=== PATIENT | female | born 1965 | race Hispanic/Latino ===

== ENCOUNTER 2022-04-03 21:08 | Inpatient (IN) | payer BC, OTHER ==
[~2022-04-03] VITALS: Ht 162.6 cm; Wt 79.8 kg
[2022-04-03] MEDS ORDERED: ACETAMINOPHEN 500 MG TABLET ONE (21:36)
[2022-04-03] MEDS ORDERED: ONDANSETRON 4MG INJ IVP ONE (22:00)
[2022-04-03] MEDS ORDERED: 0.9%NACL 1000ML 1,000 ML IV SCH ×2 (22:00→23:30)
[2022-04-03] MEDS ORDERED: ACETAMINOPHEN 500 MG TABLET PO ONE (22:00)
[2022-04-03 22:04] LABS: BASOPHILS % (AUTO) 0.4 % (0.0-5.0); HEMATOCRIT 46.1 % (36-48); MEAN CORPUSCULAR HEMOGLOBIN 29.2 pg (27.0-33.0); MEAN CORPUSCULAR HGB CONC 33.6 g/dL (32.0-36.0); MEAN CORPUSCULAR VOLUME 86.8 fL (79-99); MONOCYTES % (AUTO) 4.5 % (3.0-13.0); NEUTROPHILS % (AUTO) 82.3 % (40.0-77.0); PLATELET COUNT (AUTO) 143 K/uL (130-400); RED BLOOD CELL COUNT(AUTO) 5.31 MIL/uL (4.00-5.50); RED CELL DISTRIBUTION WIDTH 12.3 % (11.0-15.5); WHITE BLOOD COUNT (AUTO) 10.8 K/uL (4.8-10.8)
[2022-04-03 22:08] LABS: APPEARANCE,URINE CLOUDY (CLEAR); BILIRUBIN,URINE 0.5 mg/dL (NEGATIVE); COLOR,URINE YELLOW (YELLOW); GLUCOSE, URINE (UA) 500 mg/dL (NEGATIVE); KETONES,URINE 5 mg/dL (NEGATIVE); LEUKOCYTE ESTERASE ,URINE NEGATIVE Leu/uL (NEGATIVE); NITRATE,URINE NEGATIVE (NEGATIVE); PH,URINE 5.5 (5.0-8.0); PROTEIN,URINE 30 mg/dL (NEGATIVE)
[2022-04-03 22:13] LABS: BACTERIA,URINE FEW /HPF (None Seen); MUCUS,URINE RARE LPF (None Seen); OTHER CASTS, URINE 1 /LPF (None Seen); SQUAMOUS EPITHELIAL CELL,UR MOD /HPF (0-2); WBC,URINE 26-50 /HPF (0-1); YEAST,URINE BUDDING FEW /HPF (None Seen)
[2022-04-03 22:18] LABS: ALBUMIN 3.2 g/dL (3.5-5.0); CREATININE 1.6 mg/dL (0.5-1.5); POTASSIUM 3.1 mmol/L (3.5-5.1); TOTAL PROTEIN, SERUM 8.2 g/dL (6.0-8.3)
[2022-04-03 22:22] LABS: ABG BASE EXCESS -1.7 mmol/L (-2.0-3.0); ABG HCO3 21.4 mmol/L (21.0-28.0); ABG OXYGEN SATURATION 93.9 % (95.0-99.0); ABG PCO2 32 mmHg (32-45)
[2022-04-03] MEDS ORDERED: CEFTRIAXONE 1G VIAL ONE (23:22)
[2022-04-03] MEDS ORDERED: INSULIN HUMULIN R 100 UNIT/ML 3ML ONE (23:22)
[2022-04-03] MEDS ORDERED: POTASSIUM BICARB/CIT AC 25 MEQ TABLET.EFF PO ONE (23:30)
[2022-04-03] MEDS ORDERED: CEFTRIAXONE 1G VIAL IVP ONE (23:30)
[2022-04-03] MEDS ORDERED: INSULIN HUMULIN R 100 UNIT/ML 3ML IV ONE (23:30)
[2022-04-04] MEDS ORDERED: GUAIFENESIN-DM 200/20 MG 10 ML PO PRN (05:00)
[2022-04-04] MEDS ORDERED: MAG/ALUM/SIMETH 30 ML UDCUP PO PRN (05:00)
[2022-04-04] MEDS ORDERED: POTASSIUM CHLORIDE 20MEQ/100ML 100 ML IV PRN (05:00)
[2022-04-04] MEDS ORDERED: ONDANSETRON 4MG INJ IV PRN (05:00)
[2022-04-04] MEDS ORDERED: GLUCAGON 1MG KIT 1 MG ML IM PRN (05:00)
[2022-04-04] MEDS ORDERED: DIPHENHYDRAMINE HCL 25 MG CAPSULE PO PRN (05:00)
[2022-04-04] MEDS ORDERED: LIDOCAINE HCL-MPF 1% 2ML VIAL IV PRN (05:00)
[2022-04-04] MEDS ORDERED: NITROGLYCERIN 0.4 MG SL TAB SL PRN (05:00)
[2022-04-04] MEDS ORDERED: MORPHINE 2 MG SYG IV PRN (05:00)
[2022-04-04] MEDS ORDERED: DEXTROSE 50%-WATER 50 ML DISP.SYRIN IV PRN (05:00)
[2022-04-04] MEDS ORDERED: LACTULOSE 20 GM/30 ML UDCUP PO PRN (05:00)
[2022-04-04] MEDS ORDERED: CEFTRIAXONE 1G VIAL IV SCH (05:00)
[2022-04-04] MEDS ORDERED: HYDRALAZINE 20MG/ML VIAL IV PRN (05:00)
[2022-04-04] MEDS: 0.9%NACL 1000ML 1,000 ML IV SCH ×2 (05:27→14:33)
[2022-04-04] MEDS: HEPARIN 5,000 UNIT VIAL SQ SCH ×2 (08:00→20:40)
[2022-04-04] MEDS: FAMOTIDINE 20MG VIAL IV SCH ×2 (08:00→20:37)
[2022-04-04] MEDS: INSULIN HUMULIN R 100 UNIT/ML 3ML SQ SCH ×4 (08:03→20:41)
[2022-04-04 10:08] LABS: HEMOGLOBIN A1C 12.4 % (4.0-6.0)
[2022-04-04] MEDS: ACETAMINOPHEN 325 MG TAB PO PRN (11:01)
[2022-04-04 13:15] VITALS: BP 115/66
[2022-04-04 14:40] LABS: AMPHET/METH SCREEN,URINE NEGATIVE (NEGATIVE); BARBITURATE SCREEN, URINE NEGATIVE (NEGATIVE); BENZODIAZEPINES SCREEN,URINE NEGATIVE (NEGATIVE); CANNABINOID SCREEN,URINE NEGATIVE (NEGATIVE); COCAINE SCREEN,URINE NEGATIVE (NEGATIVE); CREATININE,URINE RANDOM 173 mg/dL (30-135); OPIATE SCREEN,URINE NEGATIVE (NEGATIVE); PHENCYCLIDINE SCREEN,URINE NEGATIVE (NEGATIVE); PROTEIN,URINE RANDOM 74.9 mg/dL (0-11.9)
[2022-04-04 15:33] LABS: ALBUMIN 2.3 g/dL (3.5-5.0); CREATININE 0.8 mg/dL (0.5-1.5); POTASSIUM 3.2 mmol/L (3.5-5.1); TOTAL PROTEIN, SERUM 5.9 g/dL (6.0-8.3)
[2022-04-04 16:00] VITALS: BP 103/60
[2022-04-04] MEDS ORDERED: MAGNESIUM 2GM PREMIX 50ML 50 ML IV PRN (16:00)
[2022-04-04] MEDS: KCL 20 MEQ ERTAB PO PRN (18:18)
[2022-04-04] MEDS: POTASSIUM CHLORIDE 10% ELIXIR 20 MEQ/15 ML UDCUP PO PRN ×2 (19:08→19:09)
[2022-04-04 20:29] VITALS: BP 105/63
[2022-04-04] MEDS: INSULIN GLARGINE 100 UNITS/ML 10 ML VIAL SQ SCH (20:42)
[2022-04-05] MEDS: 0.9%NACL 1000ML 1,000 ML IV SCH ×4 (00:46→23:35)
[2022-04-05 04:15] VITALS: BP 110/58
[2022-04-05 05:27] LABS: BASOPHILS % (AUTO) 0.4 % (0.0-5.0); HEMATOCRIT 33.5 % (36-48); LYMPHOCYTES % (AUTO) 23.4 % (21.0-51.0); MEAN CORPUSCULAR HEMOGLOBIN 29.4 pg (27.0-33.0); MEAN CORPUSCULAR HGB CONC 33.1 g/dL (32.0-36.0); MEAN CORPUSCULAR VOLUME 88.9 fL (79-99); MONOCYTES % (AUTO) 7.5 % (3.0-13.0); NEUTROPHILS % (AUTO) 66.5 % (40.0-77.0); PLATELET COUNT (AUTO) 147 K/uL (130-400); RED BLOOD CELL COUNT(AUTO) 3.77 MIL/uL (4.00-5.50); RED CELL DISTRIBUTION WIDTH 12.6 % (11.0-15.5); WHITE BLOOD COUNT (AUTO) 7.7 K/uL (4.8-10.8)
[2022-04-05 05:34] LABS: CREATININE 0.7 mg/dL (0.5-1.5); POTASSIUM 3.3 mmol/L (3.5-5.1)
[2022-04-05] MEDS: KCL 20 MEQ ERTAB PO PRN ×3 (05:40→19:43)
[2022-04-05] MEDS: ACETAMINOPHEN 325 MG TAB PO PRN ×2 (05:59→11:39)
[2022-04-05] MEDS: INSULIN HUMULIN R 100 UNIT/ML 3ML SQ SCH ×4 (06:02→19:40)
[2022-04-05 08:34] VITALS: BP 130/64
[2022-04-05] MEDS: FAMOTIDINE 20MG VIAL IV SCH ×2 (11:13→19:43)
[2022-04-05 11:19] VITALS: BP 115/58
[2022-04-05] MEDS: HEPARIN 5,000 UNIT VIAL SQ SCH ×2 (11:20→19:43)
[2022-04-05] MEDS: CEFTRIAXONE 1G VIAL IVP SCH (11:30)
[2022-04-05] MEDS ORDERED: CEFTRIAXONE 1G VIAL ONE (11:44)
[2022-04-05] MEDS ORDERED: HYDROMORPHONE 1 MG INJ IVP PRN (12:00)
[2022-04-05] MEDS: HYDROMORPHONE 0.5 MG SYG (0.5MG/0.5ML) IVP PRN ×2 (12:18→19:42)
[2022-04-05] MEDS ORDERED: CLONAZEPAM 0.5 MG TABLET PO SCH (12:30)
[2022-04-05 13:40] LABS: CREATININE 0.6 mg/dL (0.5-1.5); MAGNESIUM 1.7 mg/dL (1.80-2.40); POTASSIUM 3.4 mmol/L (3.5-5.1)
[2022-04-05] MEDS ORDERED: MAGNESIUM 2GM PREMIX 50ML 50 ML IV PRN (16:00)
[2022-04-05 16:30] VITALS: BP 107/64
[2022-04-05] MEDS: INSULIN GLARGINE 100 UNITS/ML 10 ML VIAL SQ SCH (19:42)
[2022-04-05 20:36] VITALS: BP 145/76
[2022-04-05 23:49] VITALS: BP 135/68
[2022-04-06 03:38] VITALS: BP 120/72
[2022-04-06] MEDS: INSULIN HUMULIN R 100 UNIT/ML 3ML SQ SCH ×3 (07:30→16:21)
[2022-04-06 08:39] VITALS: BP 136/75
[2022-04-06] MEDS: FAMOTIDINE 20MG VIAL IV SCH ×2 (10:17→20:47)
[2022-04-06] MEDS: HEPARIN 5,000 UNIT VIAL SQ SCH ×2 (10:18→20:48)
[2022-04-06] MEDS: HYDROMORPHONE 0.5 MG SYG (0.5MG/0.5ML) IVP PRN (10:19)
[2022-04-06] MEDS: CEFTRIAXONE 1G VIAL IVP SCH (11:12)
[2022-04-06 12:08] VITALS: BP 134/77
[2022-04-06 16:26] LABS: BASOPHILS % (AUTO) 0.7 % (0.0-5.0); HEMATOCRIT 33.2 % (36-48); LYMPHOCYTES % (AUTO) 20.2 % (21.0-51.0); MEAN CORPUSCULAR HEMOGLOBIN 29.4 pg (27.0-33.0); MEAN CORPUSCULAR HGB CONC 33.4 g/dL (32.0-36.0); MEAN CORPUSCULAR VOLUME 87.8 fL (79-99); MONOCYTES % (AUTO) 5.6 % (3.0-13.0); PLATELET COUNT (AUTO) 198 K/uL (130-400); RED BLOOD CELL COUNT(AUTO) 3.78 MIL/uL (4.00-5.50); WHITE BLOOD COUNT (AUTO) 9.1 K/uL (4.8-10.8)
[2022-04-06] MEDS: 0.9%NACL 1000ML 1,000 ML IV SCH ×2 (16:27→16:33)
[2022-04-06] MEDS: MAGNESIUM 2GM PREMIX 50ML 50 ML IV SCH (16:28)
[2022-04-06] MEDS: KCL 20 MEQ ERTAB PO PRN (16:29)
[2022-04-06 16:31] VITALS: BP 131/79
[2022-04-06] MEDS ORDERED: 0.9% NACL 250ML 250 ML ONE (16:36)
[2022-04-06] MEDS: DOXYCYCLINE 100MG+NS 250ML IV SCH (16:38)
[2022-04-06] MEDS: NEUTRA-PHOS PACKET 1 EACH PO SCH ×2 (16:40→20:53)
[2022-04-06 17:12] LABS: CREATININE 0.7 mg/dL (0.5-1.5); POTASSIUM 3.4 mmol/L (3.5-5.1); TOTAL PROTEIN, SERUM 5.7 g/dL (6.0-8.3)
[2022-04-06 17:22] LABS: % IRON SATURATION 20.3 % (22-44)
[2022-04-06] MEDS ORDERED: POTASSIUM CHLORIDE 10% ELIXIR 20 MEQ/15 ML UDCUP PO SCH (18:00)
[2022-04-06 19:54] VITALS: BP 121/69
[2022-04-06] MEDS: INSULIN GLARGINE 100 UNITS/ML 10 ML VIAL SQ SCH (20:54)
[2022-04-07 00:14] VITALS: BP 123/77
[2022-04-07] MEDS: 0.9%NACL 1000ML 1,000 ML IV SCH ×2 (00:21→11:00)
[2022-04-07] MEDS: ACETAMINOPHEN 325 MG TAB PO PRN ×2 (03:43→11:04)
[2022-04-07 03:52] VITALS: BP 127/77
[2022-04-07] MEDS: DOXYCYCLINE 100MG+NS 250ML IV SCH ×2 (04:37→17:07)
[2022-04-07 05:43] LABS: BASOPHILS % (AUTO) 0.4 % (0.0-5.0); HEMATOCRIT 30.5 % (36-48); LYMPHOCYTES % (AUTO) 24.5 % (21.0-51.0); MEAN CORPUSCULAR HGB CONC 33.4 g/dL (32.0-36.0); MEAN CORPUSCULAR VOLUME 86.6 fL (79-99); MONOCYTES % (AUTO) 7.4 % (3.0-13.0); NEUTROPHILS % (AUTO) 62.2 % (40.0-77.0); PLATELET COUNT (AUTO) 203 K/uL (130-400); RED BLOOD CELL COUNT(AUTO) 3.52 MIL/uL (4.00-5.50); RED CELL DISTRIBUTION WIDTH 13.2 % (11.0-15.5); WHITE BLOOD COUNT (AUTO) 7.4 K/uL (4.8-10.8)
[2022-04-07 06:15] LABS: ALBUMIN 1.9 g/dL (3.5-5.0); CREATININE 0.7 mg/dL (0.5-1.5); POTASSIUM 3.4 mmol/L (3.5-5.1); THYROID STIMULATING HORMONE 1.17 uIU/mL (0.36-3.74); TOTAL PROTEIN, SERUM 5.6 g/dL (6.0-8.3)
[2022-04-07] MEDS: KCL 20 MEQ ERTAB PO PRN (06:46)
[2022-04-07 08:02] VITALS: BP 123/72
[2022-04-07] MEDS: FAMOTIDINE 20MG VIAL IV SCH ×2 (10:44→21:20)
[2022-04-07] MEDS: NEUTRA-PHOS PACKET 1 EACH PO SCH ×4 (10:46→21:21)
[2022-04-07] MEDS: HEPARIN 5,000 UNIT VIAL SQ SCH ×2 (10:47→21:27)
[2022-04-07] MEDS: CEFTRIAXONE 1G VIAL IVP SCH (10:47)
[2022-04-07] MEDS ORDERED: POTASSIUM CHLORIDE 10% ELIXIR 20 MEQ/15 ML UDCUP PO SCH (11:00)
[2022-04-07 11:08] LABS: PHOSPHORUS 2.6 mg/dL (2.5-4.9); URIC ACID 3.6 mg/dL (2.6-7.2)
[2022-04-07 11:53] VITALS: BP 123/73
[2022-04-07 16:00] VITALS: BP 130/75
[2022-04-07] MEDS: MEROPENEM 1 GM VIAL IVPB SCH ×2 (17:07→22:08)
[2022-04-07 21:17] VITALS: BP 135/78
[2022-04-07] MEDS: INSULIN GLARGINE 100 UNITS/ML 10 ML VIAL SQ SCH (21:28)
[2022-04-08 00:10] VITALS: BP 121/60
[2022-04-08] MEDS: 0.9%NACL 1000ML 1,000 ML IV SCH (01:43)
[2022-04-08] MEDS ORDERED: 0.9% NACL 250ML 250 ML ONE (03:38)
[2022-04-08] MEDS: DOXYCYCLINE 100MG+NS 250ML IV SCH ×2 (03:40→17:23)
[2022-04-08 04:42] VITALS: BP 118/59
[2022-04-08 05:02] LABS: BASOPHILS % (AUTO) 0.4 % (0.0-5.0); EOSINOPHILS % (AUTO) 0.3 % (0.0-8.0); HEMATOCRIT 30.1 % (36-48); MEAN CORPUSCULAR HEMOGLOBIN 29.2 pg (27.0-33.0); MEAN CORPUSCULAR HGB CONC 32.6 g/dL (32.0-36.0); MEAN CORPUSCULAR VOLUME 89.6 fL (79-99); MONOCYTES % (AUTO) 8.4 % (3.0-13.0); NEUTROPHILS % (AUTO) 51.8 % (40.0-77.0); PLATELET COUNT (AUTO) 236 K/uL (130-400); RED BLOOD CELL COUNT(AUTO) 3.36 MIL/uL (4.00-5.50); RED CELL DISTRIBUTION WIDTH 13.4 % (11.0-15.5); WHITE BLOOD COUNT (AUTO) 7.6 K/uL (4.8-10.8)
[2022-04-08 05:21] LABS: ALBUMIN 1.8 g/dL (3.5-5.0); CREATININE 0.7 mg/dL (0.5-1.5); MAGNESIUM 1.8 mg/dL (1.80-2.40); PHOSPHORUS 3.2 mg/dL (2.5-4.9); POTASSIUM 3.7 mmol/L (3.5-5.1); TOTAL PROTEIN, SERUM 5.7 g/dL (6.0-8.3)
[2022-04-08] MEDS: MEROPENEM 1 GM VIAL IVPB SCH ×3 (06:33→23:41)
[2022-04-08] MEDS: MAGNESIUM 2GM PREMIX 50ML 50 ML IV SCH (07:08)
[2022-04-08 08:24] VITALS: BP 129/72
[2022-04-08] MEDS: FAMOTIDINE 20MG VIAL IV SCH (09:44)
[2022-04-08] MEDS: HEPARIN 5,000 UNIT VIAL SQ SCH ×2 (09:46→21:28)
[2022-04-08] MEDS: ACETAMINOPHEN 325 MG TAB PO PRN (09:47)
[2022-04-08 12:00] VITALS: BP 130/69
[2022-04-08] MEDS: METFORMIN HCL 500 MG TABLET PO SCH ×2 (12:00→17:24)
[2022-04-08 17:40] VITALS: BP 143/90
[2022-04-08] MEDS: POTASSIUM CHLORIDE 10% ELIXIR 20 MEQ/15 ML UDCUP PO PRN (19:49)
[2022-04-08 20:00] VITALS: BP 144/78
[2022-04-08] MEDS: INSULIN GLARGINE 100 UNITS/ML 10 ML VIAL SQ SCH (21:27)
[2022-04-09] VITALS: BP 132/69
[2022-04-09] MEDS: 0.9%NACL 1000ML 1,000 ML IV SCH ×3 (01:15→16:53)
[2022-04-09 03:52] VITALS: BP 137/75
[2022-04-09] MEDS: DOXYCYCLINE 100MG+NS 250ML IV SCH ×2 (04:00→16:52)
[2022-04-09 04:36] LABS: BASOPHILS % (AUTO) 0.6 % (0.0-5.0); EOSINOPHILS % (AUTO) 0.4 % (0.0-8.0); HEMATOCRIT 30.6 % (36-48); LYMPHOCYTES % (AUTO) 43.5 % (21.0-51.0); MEAN CORPUSCULAR HEMOGLOBIN 29.3 pg (27.0-33.0); MEAN CORPUSCULAR HGB CONC 32.7 g/dL (32.0-36.0); MEAN CORPUSCULAR VOLUME 89.7 fL (79-99); MONOCYTES % (AUTO) 7.3 % (3.0-13.0); NEUTROPHILS % (AUTO) 44.5 % (40.0-77.0); PLATELET COUNT (AUTO) 285 K/uL (130-400); RED BLOOD CELL COUNT(AUTO) 3.41 MIL/uL (4.00-5.50); RED CELL DISTRIBUTION WIDTH 13.5 % (11.0-15.5); WHITE BLOOD COUNT (AUTO) 7.1 K/uL (4.8-10.8)
[2022-04-09 05:31] LABS: ALBUMIN 1.9 g/dL (3.5-5.0); CREATININE 0.7 mg/dL (0.5-1.5); TOTAL PROTEIN, SERUM 5.8 g/dL (6.0-8.3)
[2022-04-09] MEDS: MEROPENEM 1 GM VIAL IVPB SCH ×2 (06:55→14:13)
[2022-04-09 08:00] VITALS: BP 142/68
[2022-04-09] MEDS: METFORMIN HCL 500 MG TABLET PO SCH ×3 (08:32→16:52)
[2022-04-09] MEDS: HEPARIN 5,000 UNIT VIAL SQ SCH (08:34)
[2022-04-09] MEDS ORDERED: GLIMEPIRIDE 2 MG TABLET PO SCH (09:00)
[2022-04-09 11:57] VITALS: BP 127/60
[2022-04-09 16:00] VITALS: BP 139/66
[2022-04-09] MEDS ORDERED: 0.9% NACL 250ML 250 ML ONE (17:12)
[2022-04-09] MEDS ORDERED: DOXY100C5 PO (18:41)
[2022-04-09] MEDS ORDERED: PIOG30TA70 PO (18:41)
[2022-04-09] MEDS ORDERED: GLIM2TAB30 PO (18:41)
[2022-04-09] MEDS ORDERED: METF-445 PO (18:41)
== END 2022-04-09 20:22 | disposition home or self-care (01) | DRG 871 ==
LOC: EDH 21:08 → EDHIP 21:09 → 4BH 04-04 11:49
PROVIDERS: ADMIT Internal Medicine; ATTEND Internal Medicine
DX: A41.50 Gram-negative sepsis, unspecified (principal); E11.10 Type 2 diabetes mellitus with ketoacidosis without coma; N17.9 Acute kidney failure, unspecified; N39.0 Urinary tract infection, site not specified; E87.1 Hypo-osmolality and hyponatremia; Z20.822 Contact with and (suspected) exposure to COVID-19; E11.65 Type 2 diabetes mellitus with hyperglycemia; E86.0 Dehydration; E87.6 Hypokalemia; R74.01 Elevation of levels of liver transaminase levels; F41.9 Anxiety disorder, unspecified; D64.9 Anemia, unspecified; E78.5 Hyperlipidemia, unspecified; E86.1 Hypovolemia; I10 Essential (primary) hypertension; Z83.3 Family history of diabetes mellitus; Z79.4 Long term (current) use of insulin
CPT/HCPCS: 36415; 36600; 70220; 70450; 71045; 76700; 80048; 80053; 80305; 81001; 82010; 82435; 82570; 82607; 82728; 82746; 82803; 82947; 82948; 83036; 83540; 83550; 83605; 83690; 83735; 83930; 84100; 84132; 84145; 84156; 84295; 84443; 84484; 84550; 85018; 85025; 85045; 86000; 86757; 87040; 87088; 87635; 87804; 93005; C9803; G0378; J0696; J1170; J1644; J1815; J2185; J3475; J3490; J7030; J7050